=== PATIENT | female | born 1970 | race Two or more races ===

== ENCOUNTER 2019-06-24 10:47 | Outpatient (CLI) | payer OTHER | END 2019-06-24 10:57 | disposition home or self-care (01) | LOC: SONOGRAMA 10:47 → MAMO-SONO 11:15 | DX: R31.21 Asymptomatic microscopic hematuria (principal); R10.11 Right upper quadrant pain; C50.012 Malignant neoplasm of nipple and areola, left female breast; N60.12 Diffuse cystic mastopathy of left breast; N60.11 Diffuse cystic mastopathy of right breast; M89.8X8 Other specified disorders of bone, other site ==